=== PATIENT | female | born 1960 | race Caucasian/White ===

== ENCOUNTER → 2020-05-14 | Outpatient (CLI) | payer OTHER, SELFPAY | END | disposition home or self-care (01) | LOC: MTDU 17:54 | PROVIDERS: PCP Family Medicine; Referring Provider Family Medicine; Visit Provider Family Medicine | DX: R50.9 Fever, unspecified (principal); R52 Pain, unspecified | CPT/HCPCS: 87635; 94799; C9803; U0003 ==